=== PATIENT | female | born 1960 | race Caucasian/White ===

== ENCOUNTER 2023-02-12 10:42 | Emergency (ER) | payer BC, MEDICAID ==
[~2023-02-12] VITALS: Ht 157.5 cm; Wt 68.2 kg
[2023-02-12 11:21] VITALS: O2SAT 98
[2023-02-12] MEDS ORDERED: AUGMENTIN 500-1 EACH PO (12:45)
[2023-02-12] MEDS ORDERED: CETIRIZINE HCL10 MG PO (12:47)
[2023-02-12] MEDS ORDERED: PREDNISONE20 MG PO (12:55)
== END 2023-02-12 12:56 | disposition home or self-care (01) ==
LOC: EDBD 11:00 → FSED 11:00
DX: J32.9 Chronic sinusitis, unspecified (principal); R51.9 Headache, unspecified; W18.39XA Other fall on same level, initial encounter
CPT/HCPCS: 70450; 99283

== ENCOUNTER 2023-10-07 12:07 | Emergency (ER) | payer BC, MEDICAID ==
[~2023-10-07] VITALS: Ht 157.5 cm; Wt 68.0 kg
[~2023-10-07 12:07] MED LIST: AUGMENTIN 500-1 EACH PO; CETIRIZINE HCL10 MG PO; PREDNISONE20 MG PO
[2023-10-07 12:15] VITALS: O2SAT 97
[2023-10-07] MEDS ORDERED: GENTAMICIN SULFA5 ML OU (13:03)
== END 2023-10-07 13:18 | disposition home or self-care (01) ==
LOC: FSED 12:14
DX: H92.01 Otalgia, right ear (principal); H61.23 Impacted cerumen, bilateral; H10.9 Unspecified conjunctivitis; H69.91 Unspecified Eustachian tube disorder, right ear; F43.10 Post-traumatic stress disorder, unspecified; G47.00 Insomnia, unspecified; F41.9 Anxiety disorder, unspecified
CPT/HCPCS: 99283

== ENCOUNTER 2023-10-14 17:25 | Emergency (ER) | payer BC, MEDICAID ==
[~2023-10-14] VITALS: Ht 157.5 cm; Wt 71.9 kg
[~2023-10-14 17:25] MED LIST changes: +GENTAMICIN SULFA5 ML OU
[2023-10-14] MEDS ORDERED: XANAX0.5 MG PO (17:58)
[2023-10-14] MEDS ORDERED: AMOX TR-K CLV1 EAC2 PO (18:13)
[2023-10-14] MEDS ORDERED: CETIRIZINE HCL10 MG PO (18:14)
[2023-10-14 18:32] VITALS: O2SAT 97
== END 2023-10-14 18:32 | disposition home or self-care (01) ==
LOC: FSED 17:38
DX: J32.9 Chronic sinusitis, unspecified (principal); F41.9 Anxiety disorder, unspecified; F43.10 Post-traumatic stress disorder, unspecified; G47.00 Insomnia, unspecified
CPT/HCPCS: 99283